=== PATIENT | male | born 1980 | race Caucasian/White ===

== ENCOUNTER 2018-11-04 19:21 | Emergency (ER) | payer BC ==
--- NOTE | 2018-11-04 19:50 | ED ---
Psychiatric Complaint - HPI Summary HPI Summary: This pt is a 37 y/o male presenting to [facility] for a mental health evaluation for SI. Pt reports he has been feeling depressed and increased anxiety. He states he has "desire to " but does not know if he would actually do it. Pt states he is depressed all the time and gets angry a lot. Per triage note, pt went to [facility] today and had his first appointment. Denies tobacco, alcohol, and drug use. He does not take any medications. He denies any PMHx. Pt lives with mother. - History Of Current Complaint Chief Complaint: EDMentalHealth Time Seen by Provider: 11/04/18 19:37 Hx Obtained From: Patient Onset/Duration: Lasting Days, Still Present Timing: Days Severity Currently: Moderate Character: Depressed, Anxious Aggravating Factor(s): Nothing Alleviating Factor(s): Nothing Associated Signs And Symptoms: Positive: Negative Related History: Positive For: Prior Psychiatric Issues - anxiety Has Suicidal: Reports: Thoughts. Denies: With A Plan Has Homicidal: Denies: Thoughts, With A Plan - Allergies/Home Medications Allergies/Adverse Reactions: Allergies Allergy/AdvReac Type Severity Reaction Status Date / Time No Known Allergies Allergy Verified 11/04/18 19:34 Home Medications: Home Medications NK [No Home Medications Reported] 11/04/18 [History Confirmed 11/04/18] PMH/Surg Hx/FS Hx/Imm Hx Endocrine/Hematology History: Denies: Hx Diabetes Cardiovascular History: Denies: Hx Hypertension Infectious Disease History: No Infectious Disease History: Denies: Traveled Outside the [place] in Last 30 Days - Family History Known Family History: Negative: Hypertension - Social History Alcohol Use: None Substance Use Type: Reports: None Smoking Status (MU): Never Smoked Tobacco Review of Systems Negative: Fever, Chills Cardiovascular: Negative Respiratory: Negative Gastrointestinal: Negative Psychological: Other - POS: SI thoughts Positive: Anxious, Depressed. Negative: Other - NEG: SI plan, HI All Other Systems Reviewed And Are Negative: Yes Physical Exam - Summary Physical Exam Summary: Appearance: Well appearing, no pain distress Skin: warm, dry, reflects adequate perfusion Head/face: normal Eyes: EOMI, AC ENT: normal Neck: supple, non-tender Respiratory: CTA, breath sounds present Cardiovascular: RRR, pulses symmetrical Abdomen: non-tender, soft Musculoskeletal: normal, strength/ROM intact Neuro: normal, sensory motor intact, A&Ox3 Psych: depressed affect Triage Information Reviewed: Yes Vital Signs On Initial Exam: Initial Vitals Temp Pulse Resp BP Pulse Ox 97.9 F 102 16 120/74 99 11/04/18 19:24 11/04/18 19:24 11/04/18 19:24 11/04/18 19:24 11/04/18 19:24 Vital Signs Reviewed: Yes Diagnostics - Vital Signs Vital Signs Temp Pulse Resp BP Pulse Ox 11/04/18 19:24 97.9 F 102 16 120/74 99 - Laboratory Result Diagrams: 11/04/18 20:50 11/04/18 20:50 Lab Statement: Any lab studies that have been ordered have been reviewed, and results considered in the medical decision making process. Course/Dx - Course Assessment/Plan: Pt is a 37 y/o male who presents to the ED for a mental health evaluation for SI. Pt reports he has been feeling depressed and increased anxiety. He states he has "desire to " but does not know if he would actually do it. Blood work, urinalysis, toxicology obtained. Pt is medically cleared. He is waiting for a mental health evaluation. Pt will be signed out to Dr. Neal, pending disposition, awaiting MHE. - Differential Dx/Clinical Impression Differential Diagnosis/HQI/PQRI: Positive: Depression, Suicidal Ideation Provider Diagnosis: Depression, Suicidal ideation Discharge - Sign-Out/Discharge Documenting (check all that apply): Sign-Out Patient Signing out patient TO: Alexis Neal - pending MHE and dispo Patient Received Moderate/Deep Sedation with Procedure: No - Discharge Plan Condition: Stable Referrals: No Primary Care Phys,NOPCP [Primary Care Provider] - - Billing Disposition and Condition Condition: STABLE - Attestation Statements Document Initiated by Scribe: Yes Documenting Scribe: Reyna Marinelli Provider For Whom Scribe is Documenting (Include Credential): Chris Lawler MD Scribe Attestation: Reyna Wooten, scribed for Chris Lawler MD on 11/04/18 at 2138. Scribe Documentation Reviewed: Yes Provider Attestation: The documentation as recorded by the zoniaibReyna roberto accurately reflects the service I personally performed and the decisions made by me, Chris Lawler MD Status of Scribe Document: Viewed
[2018-11-04 20:03] LABS: Urine Appearance Cloudy; Urine Bilirubin Negative (Negative); Urine Blood Negative (Negative); Urine Color Yellow; Urine Glucose Negative (Negative); Urine Ketones Trace (Negative); Urine Nitrite Negative (Negative); Urine Protein Negative (Negative); Urine Specific Gravity 1.026 (1.010-1.030); Urine Urobilinogen Negative (Negative)
[2018-11-04 20:18] LABS: Barbiturates Urine Screen None Detected (None Detect); Benzodiazepine Urine Screen None Detected (None Detect); Urine Cannabinoids Screen None Detected (None Detect)
[2018-11-04 20:57] LABS: ABS Basophils 0 10^3/ul (0-0.2); ABS Eosinophils 0.1 10^3/ul (0-0.6); ABS Lymphocytes 2.1 10^3/ul (1.0-4.8); ABS Monocytes 0.6 10^3/ul (0-0.8); ABS Neutrophils 3.7 10^3/ul (1.5-7.7); ABS Nucleated RBC 0 10^3/ul; Eosinophil % 1.3 %; Hematocrit 44 % (36-46); Lymphocyte % 32.4 %; Mean Corpuscular HGB Conc 34 g/dL (31-36); Mean Corpuscular Hemoglobin 31 pg (27-31); Mean Corpuscular Volume 90 fL (80-94); Mean Platelet Volume 8.4 fL (7.4-10.4); Nucleated Red Blood Cells % 0.1; Platelet Count 222 10^3/uL (150-450); Red Blood Count 4.89 10^6 /uL (4.18-5.48); Red Cell Distribution Width 13 % (10.5-15); White Blood Count 6.5 10^3/uL (3.5-10.8)
[2018-11-04 21:14] LABS: ALT 22 U/L (7-52); AST 19 U/L (13-39); Albumin 4.7 g/dL (3.2-5.2); Alkaline Phosphatase 69 U/L (34-104); Anion Gap 5 mmol/L (2-11); BUN/Creatinine Ratio 16.2 (8-20); Blood Urea Nitrogen 17 mg/dL (6-24); CO2 Carbon Dioxide 32 mmol/L (22-32); Calcium 9.8 mg/dL (8.6-10.3); Chloride 102 mmol/L (101-111); EGFR African American 96.2 (>60); EGFR Non-African American 79.5 (>60); Globulin 2.4 g/dL (2-4); Glucose 94 mg/dL (70-100); Potassium 4.1 mmol/L (3.5-5.0); Sodium 139 mmol/L (135-145); Total Protein 7.1 g/dL (6.4-8.9)
[2018-11-04 21:20] LABS: Acetaminophen < 15 mcg/mL; Alcohol < 10 mg/dL (<10); Salicylate < 2.50 mg/dL (<30)
[2018-11-04 21:36] LABS: TSH (Thyroid Stimulating Horm) 2.87 mcIU/mL (0.34-5.60)
--- NOTE | 2018-11-04 22:00 | ED ---
Course/Dx - Course Course Of Treatment: Patient was signed out by Dr. Lawler at end of shift, pending MHE. Patient will be signed out to Dr. Gonzalez at end of shift, pending admission. - Diagnoses Provider Diagnoses: Depression, Suicidal ideation Discharge - Sign-Out/Discharge Documenting (check all that apply): Sign-Out Patient, Receiving Sign-Out Signing out patient TO: Guero Gonzalez Receiving patient FROM: Chris Lawler Patient Received Moderate/Deep Sedation with Procedure: No - Discharge Plan Condition: Stable Disposition: ADMITTED TO [facility] Referrals: No Primary Care Phys,NOPCP [Primary Care Provider] - - Billing Disposition and Condition Condition: STABLE Disposition: Admitted to [facility] - Attestation Statements Document Initiated by Alecia: Yes Documenting Scribe: Daniele Nails Provider For Whom Alecia is Documenting (Include Credential): Alexis Neal MD Scribe Attestation: Daniele Wooten, scribed for Alexis Neal MD on 11/06/18 at 0218. Scribe Documentation Reviewed: Yes Provider Attestation: The documentation as recorded by the Daniele gilliland accurately reflects the service I personally performed and the decisions made by Alexis fields MD Status of Scribe Document: Viewed
--- NOTE | 2018-11-05 09:31 | PN ---
ED Flex Patient Progress Note Date of Service: 11/04/18 Subjective: This is a 37 year-old M who is pending admission to [facility] / transfer to another psychiatric facility / discharge to home / or being observed secondary to depression, SI. Pt. examined in room 7 around 0915. He states he is feeling anxious but is resting comfortably. Objective: Vitals: Most recent vital signs documented below. General NAD, Alert and oriented x3. Laboratory: Current laboratory results documented below. Assessment: depression, SI Plan: Pending disposition. Vital Signs Temp Pulse Resp BP Pulse Ox 98.1 F 81 16 102/61 99 11/05/18 07:15 11/05/18 07:15 11/05/18 07:15 11/05/18 07:15 11/04/18 19:24 Lab Results - Entire Visit 11/04/18 11/04/18 11/04/18 20:50 20:50 19:37 WBC 6.5 RBC 4.89 Hgb 15.0 Hct 44 MCV 90 MCH 31 MCHC 34 RDW 13 Plt Count 222 MPV 8.4 Neut % (Auto) 57.3 Lymph % (Auto) 32.4 Ashe % (Auto) 8.7 Eos % (Auto) 1.3 Baso % (Auto) 0.3 Absolute Neuts (auto) 3.7 Absolute Lymphs (auto) 2.1 Absolute Monos (auto) 0.6 Absolute Eos (auto) 0.1 Absolute Basos (auto) 0 Absolute Nucleated RBC 0 Nucleated RBC % 0.1 Sodium 139 Potassium 4.1 Chloride 102 Carbon Dioxide 32 Anion Gap 5 BUN 17 Creatinine 1.05 Est GFR ( Amer) 96.2 Est GFR (Non-Af Amer) 79.5 BUN/Creatinine Ratio 16.2 Glucose 94 Calcium 9.8 Total Bilirubin 0.50 AST 19 ALT 22 Alkaline Phosphatase 69 Total Protein 7.1 Albumin 4.7 Globulin 2.4 Albumin/Globulin Ratio 2.0 TSH 2.87 Urine Color Urine Appearance Urine pH Ur Specific [place] Urine Protein Urine Ketones Urine Blood Urine Nitrate Urine Bilirubin Urine Urobilinogen Ur Leukocyte Esterase Urine Glucose Salicylates < 2.50 Urine Opiates Screen None detected Acetaminophen < 15 Ur Barbiturates Screen None detected Ur Phencyclidine Scrn None detected Ur Amphetamines Screen None detected U Benzodiazepines Scrn None detected Urine Cocaine Screen None detected U Cannabinoids Screen None detected Serum Alcohol < 10 11/04/18 19:37 WBC RBC Hgb Hct MCV MCH MCHC RDW Plt Count MPV Neut % (Auto) Lymph % (Auto) Ashe % (Auto) Eos % (Auto) Baso % (Auto) Absolute Neuts (auto) Absolute Lymphs (auto) Absolute Monos (auto) Absolute Eos (auto) Absolute Basos (auto) Absolute Nucleated RBC Nucleated RBC % Sodium Potassium Chloride Carbon Dioxide Anion Gap BUN Creatinine Est GFR ( Amer) Est GFR (Non-Af Amer) BUN/Creatinine Ratio Glucose Calcium Total Bilirubin AST ALT Alkaline Phosphatase Total Protein Albumin Globulin Albumin/Globulin Ratio TSH Urine Color Yellow Urine Appearance Cloudy Urine pH 6.0 Ur Specific Olivet 1.026 Urine Protein Negative Urine Ketones Trace A Urine Blood Negative Urine Nitrate Negative Urine Bilirubin Negative Urine Urobilinogen Negative Ur Leukocyte Esterase Negative Urine Glucose Negative Salicylates Urine Opiates Screen Acetaminophen Ur Barbiturates Screen Ur Phencyclidine Scrn Ur Amphetamines Screen U Benzodiazepines Scrn Urine Cocaine Screen U Cannabinoids Screen Serum Alcohol
--- NOTE | 2018-11-05 13:08 | PN ---
Subjective - Subjective Date of Service: 11/05/18 Service Type: [id number] Hosp care 15 min low complexity Subjective: Patient tearful when discussing events leading to presentation. He endorses vague SI and passive wish. He states understanding of need to find accepting facility and transfer process. Objective - General Observations Appearance: Neat Stature: Thin Posture: WNL Eye Contact: Average Behavior/Activity: WNL - Interaction Observations Attitude Towards Examiner: Cooperative Stated Mood: Dysphoric, Anxious Affect: Full - tearful congruent to topic of conversation Speech Pattern/Tone: Clear Thought Process: Coherent Perception: WNL Thought Content: Preoccupation/Ruminations, Self-Deprecatory Thought Process: Lethality: Passive Wish, Suicidal Planning Hallucination Type: Denies Delusion Type: Denies - Cognitive Function Orientation: A&O x 4 Level of Consciousness: Alert Cognition: WNL Estimated Intelligence: Normal Insight: WNL Judgment Within Normal Limits: Yes Ability to Make Reasonable Decisions: Mildly Impaired Assessment - Assessment Merits Inpatient Hospitalization: For Immediate Safety, For Stabilization Clinical Impression: 37yo wm with no known psychiatric history who presented to ED after first appointment with outpatient therapist. He endorses depressive sx with SI and passive wish. He merits hospitalization for immediate safety. Plan - Plan Treatment Plan: Name: SHERI MCKEON Birthdate: 1980 [id number] Patient deemed appropriate for admission to inpatient psychiatric facility. [facility] BSU unit full. Recommend adult only facility. - Discharge Plan Discharge Plan: Inpatient Hospitalization
--- NOTE | 2018-11-05 15:40 | ED ---
Progress - Progress Note Progress Note: Pt is a signout from Dr. Neal pending E. - Consult/PCP Time Called: 15:30 Consult/PCP: Dr. Bond Consult Reason/Comments: Accepts pt for admission. Course/Dx - Course Course Of Treatment: The pt is a signout from Dr. Neal pending E. Dr. Bond will be accepting the pt for admission. - Diagnoses Provider Diagnoses: Depression, Suicidal ideation Discharge - Sign-Out/Discharge Documenting (check all that apply): Patient Departure - Discharge Plan Condition: Stable Disposition: ADMITTED TO [facility] Referrals: No Primary Care Phys,NOPCP [Primary Care Provider] - - Attestation Statements Document Initiated by Scribe: Yes Documenting Scribe: Peace Fernandez Provider For Whom Scribe is Documenting (Include Credential): Guero Gonzalez MD. Scribe Attestation: Peace Wooten, scribed for Guero Gonzalez MD. on 11/05/18 at 1539. Status of Scribe Document: Ready
[2018-11-05 18:13] VITALS: BP 123/78
== END 2018-11-05 15:39 | disposition short-term general hospital (02) ==
LOC: ED 19:21
DX: F32.9 Major depressive disorder, single episode, unspecified (principal); R45.851 Suicidal ideations; F41.9 Anxiety disorder, unspecified
CPT/HCPCS: 36415; 80053; 80307; 80320; 80329; 81003; 84443; 85025; 93005; 99284; G0480